=== PATIENT | male | born 1985 | race Caucasian/White ===

== ENCOUNTER 2017-06-24 20:04 | Emergency (ER) | payer MEDICAID ==
[2017-06-24] MEDS ORDERED: Multivitamin Inj 10 ML, Thiamine HCL 100 MG, Magnesium Sulfate 2 GM, Folic Acid 1 MG in... IV ONE (20:29)
--- NOTE | 2017-06-24 20:36 | ED Physician Chart ---
ED Chief Complaint/HPI - Patient Information Date Seen:: 06/24/17 Time Seen:: 20:30 Chief Complaint:: left arm pain History of Present Illness:: About 2 hours ago patient developed left arm pain. He denies chest pain. He also had shortness of breath. Patient stopped drinking alcohol 5 days ago. Prior to that he was drinking whiskey and vodka for last 8 years. Allergies:: Allergies Allergy/AdvReac Type Severity Reaction Status Date / Time No Known Allergies Allergy Verified 06/24/17 20:10 Vitals:: Vital Signs - 8 hr 06/24/17 20:05 Temp 98.1 F HR 86 RR 18 BP 135/95 O2 Sat % 100 Historian:: Patient Review:: Nurse's Note Reviewed ED Review of Systems - Review of Systems General/Constitutional: No fever, No chills Skin: No skin lesions Head: No headache Eyes: No loss of vision ENT: No earache, No sore throat Neck: No neck pain Cardio Vascular: No chest pain Pulmonary: SOB GI: No nausea, No vomiting, No diarrhea G/U: No dysuria Musculoskeletal: Other (left arm pain) Endocrine: No polyuria, No polydipsia Psychiatric: No prior psych history Hematopoietic: No bruising Allergic/Immuno: No urticaria Neurological: No syncope, No focal symptoms ED Past Medical History - Past Medical History Past Medical History: No significant medical hx Family History: None Social History: Smoker, Alcohol, Other (patient smokes one package of cigarettes per day) Surgical History: other (right hand) Psychiatricy History: None Medication: None Family Medical History - Family Member Mother History Unknown: Yes ED Physical Exam - Physical Examination General/Constitutional: Well-developed, well-nourished, Alert, No distress, Non- toxic appearing Head: Atraumatic Eyes: Lids, conjuctiva normal, PERRL Skin: Nl inspection, No rash, No skin lesions, No ecchymosis, Well hydrated, No lymphadenopathy ENMT: External ears, nose nl, TM canals nl, Nasal exam nl, Lips, teeth, gums nl , Oropharynx nl, Tonsils nl Neck: No nuchal rigidity Respiratory: Nl effort/Exclusion, No Wheeze/Rhonchi/Rales Other Respiratory comments:: Breath sounds decreased Cardio Vascular: RRR, No murmur, gallop, rubs GI: No tenderness/rebounding/guarding, No organomegaly, No hernia : No CVA tenderness Extremities: Normal digits & nails Neuro/Psych: Alert/oriented, No focal deficits Misc: Normal back ED Labs/Radiology/EKG Results - Lab Results Results: Laboratory Results - last 24 hr 06/24/17 06/24/17 06/24/17 20:32 20:32 20:32 WBC 7.8 RBC 5.27 Hgb 15.8 Hct 47.1 MCV 89.4 MCH 29.9 MCHC Differential 33.5 RDW 12.1 Plt Count 213 MPV 9.9 Neutrophils % 61.0 Lymphocytes % 27.3 Monocytes % 8.7 Eosinophils % 2.5 Basophils % 0.5 Sodium 132 L Potassium 3.4 L Chloride 101 Carbon Dioxide 25.4 Anion Gap 9.0 BUN 14 Creatinine 0.9 Est GFR ( Amer) > 60.0 Est GFR (Non-Af Amer) > 60.0 BUN/Creatinine Ratio 15.6 Glucose 94 Calcium 9.7 Magnesium 2.2 Troponin I < 0.01 L - EKG Interpretations Rate & Rhythm: normal sinus rhythm with a rate 83 [place]: normal Comments:: Concave ST elevation in inferior and anterior leads ED Assessment - Assessment General Assessment: Patient felt better after the banana bag and Librium 50 mg orally. I am prescribing Librium 50 mg #12 to take one 3 times a day as necessary. Patient warned not to drink alcohol with taking Librium and he agreed he was not going to do so. Patient's shortness of breath most likely due to early COPD. At 2114 he denied any shortness of breath so a breathing treatment was not given. ED Septic Shock - . Is Septic Shock (SBP<90, OR Lactate>4 mmol\L) present?: No - <6hrs of presentation: Vital Signs: Vital Signs - 8 hr 06/24/17 20:05 Temp 98.1 F HR 86 RR 18 BP 135/95 O2 Sat % 100 ED Reassessment (Disposition) - Reassessment Reassessment Condition:: Improved - Diagnosis Diagnosis:: Alcohol withdrawal; hypokalemia - Aftercare/Follow up Instructions Aftercare/Follow-Up Instructions:: Refer to Discharge Instructions - Patient Disposition Discharge/Transfer:: Home Condition at Disposition:: Stable, Improved
[2017-06-24 20:39] LABS: % BASOPHILS 0.5 % (0.0-2.0); % EOSINOPHILS 2.5 % (0.0-5.0); % LYMPHOCYTES 27.3 % (20.0-50.0); % MONOCYTES 8.7 % (2.0-10.0); EOSINOPHILE ABSOLUTE 0.2 Th/cmm (0.1-0.4); HEMATOCRIT 47.1 % (41.0-60); HEMOGLOBIN 15.8 gm/dL (12-16); LYMPHOCYTE ABSOLUTE 2.1 Th/cmm (1.5-3.0); MEAN CELL VOLUME 89.4 fl (80-99); MEAN CORPUSCULAR HEMOGLOBIN 29.9 pg (26.0-30.0); MEAN CORPUSCULAR HGB CONC 33.5 pg (28.0-36.0); MEAN PLATELET VOLUME 9.9 fl; MONOCYTE ABSOLUTE 0.7 Th/cmm (0.3-1.0); NEUTROPHILE ABSOLUTE 4.8 Th/cmm (1.8-8.0); PLATELET COUNT 213 Th/cmm (150-400); RED BLOOD COUNT 5.27 Mil/cmm (4.30-5.70); RED CELL DISTRIBUTION WIDTH 12.1 % (11.5-20.0); WHITE BLOOD COUNT 7.8 Th/cmm (4.8-10.8)
[2017-06-24] MEDS ORDERED: Thiamine 100 mg/mL 2mL Vial ONE (20:40)
[2017-06-24] MEDS ORDERED: Magnesium Sulfate 1 gm/2 mL 2mL Vial IV ONE (20:41)
[2017-06-24] MEDS ORDERED: Multivitamin Inj 10 mL Vial IV ONE (20:42)
[2017-06-24 20:55] LABS: BUN - UREA NITROGEN 14 mg/dL (7-25); CALCIUM SERUM 9.7 mg/dL (8.6-10.3); CARBON DIOXIDE 25.4 mEq/L (21.0-31.0); CHLORIDE 101 mEq/L (98-107); CREATININE - SERUM 0.9 mg/dL (0.7-1.3); GFR AFRICAN-AMERICAN > 60.0 ml/min (>90); GFR NON AFRICAN-AMERICAN > 60.0 ml/min; GLUCOSE 94 mg/dL (70-105); MAGNESIUM 2.2 mg/dL (1.9-2.7); POTASSIUM SERUM 3.4 mEq/L (3.5-5.1); SODIUM SERUM 132 mEq/L (136-145)
[2017-06-24] MEDS ORDERED: Potassium Chloride 20 mEq ER Tab PO ONE ×2 (21:20→21:25)
== END 2017-06-24 21:40 | disposition home or self-care (01) ==
LOC: ER 20:04
DX: F10.239 Alcohol dependence with withdrawal, unspecified (principal); E87.6 Hypokalemia; F17.210 Nicotine dependence, cigarettes, uncomplicated
CPT/HCPCS: 99285; 93005; 84484; 36415; 85025; 83735; 80048; J3411; J3475; J7030; X6226; X6598; Z7610